=== PATIENT | male | born 1985 | race Caucasian/White ===

== ENCOUNTER 2024-08-31 10:13 | Emergency (ER) | payer OTHER, SELFPAY ==
[2024-08-31 10:22] VITALS: BP 138/90; PULSE 95; TEMP 36.3; O2SAT 97; BMI 31.0
--- NOTE | 2024-08-31 10:42 | CT_ITS ---
[place] [id number] Patient Name: RUSS CLAIRE MRN: [id number] date: 1985 Sex: M Assigned Patient Location: ER Current Patient Location: ER Accession/Order Number: [id number] Exam Date: 08/31/2024 11:35 Report Date: 08/31/2024 12:02 At the request of: HEATHER VENTURA Procedure: CT abdomen pelvis w con EXAMINATION: CT abdomen pelvis w con HISTORY: abd pain, bloating , bloody diarrhea, weakness COMPARISON: No relevant comparison available. TECHNIQUE: Axial, Coronal, and Sagittal images were obtained without and/or with IV contrast as indicated by examination type. Dose reduction techniques were achieved by using automated exposure control and/or adjustment of mA and/or kV according to patient size and/or use of iterative reconstruction technique. FINDINGS: LUNG BASES: No visible pulmonary or pleural disease. LIVER: No enlargement, atrophy, suspicious density, or significant focal lesion. BILIARY: No dilatation or calcification. PANCREAS: Fatty replaced. SPLEEN: No enlargement or focal lesion. ADRENALS: No mass or enlargement. KIDNEYS: No mass, obstruction, or calcification. BOWEL/MESENTERY: Moderate size hiatal hernia. No visible mass, obstruction, or bowel wall thickening. Normal appendix. AORTA/VASCULAR: No aneurysm or dissection. RETROPERITONEUM: No mass or adenopathy. LYMPH NODES: No adenopathy. URINARY BLADDER: No visible focal wall thickening, lesion, or calculus. PELVIC ORGANS: No visible mass. Pelvic organs appropriate for patient age. ABDOMINAL WALL: No mass or hernia. BONES: No bony lesion or fracture. OTHER: Negative. CT/CT abdomen pelvis w con IMPRESSION: 1. No abnormal or suspicious findings to account for patient's symptoms. 2. 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 Electronically authenticated by: PALLAVI MITCHELL Date: 08/31/2024 12:02
--- NOTE | 2024-08-31 10:43 | ED_ITS ---
HPI HPI - General Adult General Chief complaint: Abdominal Pain Stated complaint: abdominal pain Time Seen by Provider: 08/31/24 10:41 Source: patient and family Mode of arrival: walk-in Limitations: no limitations History of Present Illness HPI narrative: Presented to the emergency department for evaluation of dental pain. Patient states for the last couple days it is a crampy abdominal pain, left lower quadrant. States that he feels like he is getting bloated as well. Has a history of ulcerative colitis, was last scoped a couple months ago. Patient states that they did biopsies, found nothing specific. Patient states he feels he is getting bloated, is having crampy abdominal pain. States every once in a while noted some blood streaking around the stool. No other complaints at this time Related Data Home Medications ?Medication ?Instructions ?Recorded ?Confirmed dicyclomine 10 mg capsule 10 mg PO BID 08/31/24 08/31/24 duloxetine 60 mg capsule,delayed 60 mg PO DAILY 08/31/24 08/31/24 release gabapentin 800 mg tablet 800 mg PO TID 08/31/24 08/31/24 metformin 500 mg tablet 500 mg PO BID 08/31/24 08/31/24 metoprolol succinate 25 mg 25 mg PO DAILY 08/31/24 08/31/24 tablet,extended release 24 hr quetiapine 400 mg tablet 400 mg PO DAILY 08/31/24 08/31/24 Previous Rx's ?Medication ?Instructions ?Recorded hydrocodone 5 mg-acetaminophen 325 1 tab PO Q6H PRN pain #14 tabs 08/31/24 mg tablet methylprednisolone 4 mg tablets in 4 mg PO DAILY #21 ea 08/31/24 a dose pack (Medrol (Marco)) ondansetron 4 mg disintegrating 4 mg PO Q8H PRN nausea and 08/31/24 tablet vomiting 5 days #20 tabs Allergies Allergy/AdvReac Type Severity Reaction Status Date / Time Cephalosporins Allergy Severe Anaphylaxis Verified 08/31/24 10:22 Penicillins Allergy Severe Anaphylaxis Verified 08/31/24 10:22 adalimumab (From Humira) AdvReac Severe Rash Verified 08/31/24 10:22 NSAIDS (Non-Steroidal AdvReac Severe Gastrointestinal Verified 08/31/24 10:22 Anti-Inflamma Upset Opioid HPI Opioid Management Most Recent Opioid Data: Last Pain Scale 5 08/31/24 12:15 08/31/24 Last MAR Pain Assessment 08/31/24 12:15 Review of Systems ROS Narrative Negative unless otherwise stated in the HPI PFSH PFS Social History Little interest or pleasure in doing things: not at all Feeling down, depressed, or hopeless: not at all Exam Narrative Exam Narrative: General: NAD, AAOx3, no distress HEENT: NCAT, mmm Respiratory: respiratory effort normal, speaks in full sentences, no tripod position, no accessory muscle use. Lungs clear to auscultation without rhonchi, wheezes, rales Cardiac: Regular rate and rhythm, no edema, regular s1/s2, no m/g/r Abdomen: Soft, generalized abdominal tenderness, worse in the left lower quadrant, No evidence of fluid wave. No pulsatile masses on exam, rebound tenderness, Huang sign or pain over Mcburney's point. Constitutional Vital Signs, click to edit/add: Last Vital Signs Temp 97.4 F L 08/31/24 10:22 Pulse 94 H 08/31/24 12:15 Resp 18 08/31/24 12:15 BP 141/91 08/31/24 12:15 Pulse Ox 96 08/31/24 12:15 O2 Del Method Room Air 08/31/24 12:15 Course Vital Signs Vital signs: Vital Signs Temperature 97.4 F L 08/31/24 10:22 Pulse Rate 95 H 08/31/24 10:22 Respiratory Rate 18 08/31/24 10:22 Blood Pressure 138/90 08/31/24 10:22 Pulse Oximetry 97 08/31/24 10:22 Oxygen Delivery Method Room Air 08/31/24 10:22 Temperature 97.4 F L 08/31/24 10:22 Pulse Rate 94 H 08/31/24 12:15 Respiratory Rate 18 08/31/24 12:15 Blood Pressure 141/91 08/31/24 12:15 Pulse Oximetry 96 08/31/24 12:15 Oxygen Delivery Method Room Air 08/31/24 12:15 Medical Decision Making MDM Narrative Medical decision making narrative: [facility] Patient with history as above presented with abdominal pain, bloating. History obtained from patient. Patient was nontoxic, stable. Ambulatory. Exam as above. Labs reviewed. Independently reviewed imaging. Reviewed external records. Differential diagnosis considered. Overall presentation is consistent with acute on chronic UC Pt who presents for abdominal pain. Patient on exam was well appearing, no distress with benign, non peritoneal abdomen. At this point in time, history a nd benign exam do not suggest acute intra-abdominal process such as appendicitis, obstruction, cholecystitis or other acute intra-abdominal process. Laboratory studies were done and not suggestive of acute disease. Patient given IV fluids and symptomatic control with improvement. Pt is tolerating PO intake at this time. The he likely has chronic ulcerative colitis. Shared decision making was utilized with patient regarding plan of care. I have recommended Tylenol for pain control as well as fluids with close PCP follow up. Patient should return to the ER in 8-12 hours if having persistent or worsening pain. Advanced guidance has been given. Vss, pex is benign at this time. Pt to fu with pcp 1-2 days for reeval, rter should sx worsen, persist or become worrysome in any way. Pt expressed understanding and agreement with plan of care at this time. Will fu as planned. Pt stable for discharge. Lab Data Labs: Lab Results 08/31/24 Range/Units 10:35 WBC 6.9 (4.0-11.0) 10^3/uL RBC 4.14 L (4.70-6.10) 10^6/uL Hgb 13.3 L (14.0-18.0) g/dL Hct 39.2 L (42.0-54.0) % MCV 94.7 H (80.0-94.0) fL MCH 32.1 (25.9-34.0) pg MCHC 33.9 (29.9-35.2) g/dL RDW 12.1 (11.0-15.0) % Plt Count 231 (150-450) 10^3/uL MPV 10.0 (9.5-13.5) fL Neut % (Auto) 59.5 (43.0-75.0) % Lymph % (Auto) 24.2 (20.5-60.0) % [place] % (Auto) 10.2 (1.7-12.0) % Eos % (Auto) 4.7 (0.9-7.0) % Baso % (Auto) 1.0 (0.2-2.0) % Neut # (Auto) 4.1 (1.4-6.5) 10^3/uL Lymph # (Auto) 1.7 (1.2-3.8) 10^3/uL [place] # (Auto) 0.7 (0.3-0.8) 10^3/uL Eos # (Auto) 0.3 (0.0-0.7) 10^3/uL Baso # (Auto) 0.1 (0.0-0.1) 10^3/uL Abs Immat Gran (auto) 0.03 (0.00-0.03) 10^3/uL Imm/Tot Granulo (auto) 0.4 (0.0-0.5) % Sodium 140 (136-145) mmol/L Potassium 4.3 (3.5-5.1) mmol/L Chloride 105 (98-107) mmol/L Carbon Dioxide 27.4 (21.0-32.0) mmol/L Anion Gap 11.9 BUN 12.0 (7.0-18.0) mg/dL Creatinine 1.01 (0.70-1.30) mg/dL Est GFR ( Amer) >60 (>=60 mL/min/1.73m^2) Est GFR (Non-Af Amer) >60 (>=60 mL/min/1.73m^2) BUN/Creatinine Ratio 11.9 Glucose 143 H (74-106) mg/dL Calcium 9.0 (8.5-10.1) mg/dL Total Bilirubin 0.5 (0.2-1.0) mg/dL AST 17 (15-37) U/L ALT 36 (16-63) U/L Alkaline Phosphatase 59 (46-116) U/L Total Protein 6.5 (6.4-8.2) g/dL Albumin 3.3 L (3.4-5.0) g/dL Globulin 3.2 g/dL Albumin/Globulin Ratio 1.0 Lipase <10.0 L (16.0-77.0) U/L Discharge Plan Discharge Chief Complaint: Abdominal Pain Clinical Impression: Abdominal pain Patient Disposition: Home, Self-Care Time of Disposition Decision: 12:25 Condition: Good Prescriptions / Home Meds: New ondansetron 4 mg tablet,disintegrating 4 mg PO Q8H PRN (Reason: nausea and vomiting) 5 Days Qty: 20 0RF hydrocodone-acetaminophen 5-325 mg tablet 1 tab PO Q6H PRN (Reason: pain) Qty: 14 0RF methylprednisolone [Medrol (Marco)] 4 mg tablets,dose pack 4 mg PO DAILY Qty: 21 0RF Rx Instructions: Take pack per dosepack instructions No Action metformin 500 mg tablet 500 mg PO BID metoprolol succinate 25 mg tablet extended release 24 hr 25 mg PO DAILY quetiapine 400 mg tablet 400 mg PO DAILY gabapentin 800 mg tablet 800 mg PO TID dicyclomine 10 mg capsule 10 mg PO BID duloxetine 60 mg capsule,delayed release(DR/EC) 60 mg PO DAILY Print Language: [place] Instructions: Abdominal Pain (ED) Additional Instructions: Follow-up with your PCP in the next 1 to 2 days. Return to the emergency department should symptoms worsen or become worrisome in any way. Referrals: Physician,Non-Staff, MD [Primary Care Provider] - 1 week
[2024-08-31] MEDS: 0.9 % SODIUM CHLORIDE 1,000 ML 999 ML IV (10:56)
[2024-08-31] MEDS: MORPHINE SULFATE 2 MG/ML SYRINGE 4 MG IV (10:58)
[2024-08-31] MEDS: ONDANSETRON PF 4 MG/2 ML VIAL IV (10:58)
[2024-08-31 11:03] LABS: Basophils Absolute Auto 0.1 10^3/uL (0.0-0.1); Eosinophils Absolute Auto 0.3 10^3/uL (0.0-0.7); Eosinophils Percent Auto 4.7 % (0.9-7.0); Hematocrit 39.2 % (42.0-54.0); Hemoglobin 13.3 g/dL (14.0-18.0); Immature Granulocytes Abs Auto 0.03 10^3/uL (0.00-0.03); Immature Granulocytes Pct Auto 0.4 % (0.0-0.5); Lymphocytes Absolute Auto 1.7 10^3/uL (1.2-3.8); Lymphocytes Percent Auto 24.2 % (20.5-60.0); Mean Corpuscular HGB Conc 33.9 g/dL (29.9-35.2); Mean Corpuscular Hemoglobin 32.1 pg (25.9-34.0); Mean Corpuscular Volume 94.7 fL (80.0-94.0); Monocytes Absolute Auto 0.7 10^3/uL (0.3-0.8); Monocytes Percent Auto 10.2 % (1.7-12.0); Neutrophils Absolute Auto 4.1 10^3/uL (1.4-6.5); Neutrophils Percent Auto 59.5 % (43.0-75.0); Platelet Count 231 10^3/uL (150-450); Red Blood Count 4.14 10^6/uL (4.70-6.10); Red Cell Distribution Width 12.1 % (11.0-15.0); White Blood Count 6.9 10^3/uL (4.0-11.0)
[2024-08-31 11:29] LABS: Alanine Aminotransferase 36 U/L (16-63); Albumin Level 3.3 g/dL (3.4-5.0); Alkaline Phosphatase 59 U/L (46-116); Anion Gap 11.9; Aspartate Amino Transferase 17 U/L (15-37); BUN Creatinine Ratio 11.9; Bilirubin Total 0.5 mg/dL (0.2-1.0); Carbon Dioxide 27.4 mmol/L (21.0-32.0); Chloride 105 mmol/L (98-107); Estimated GFR (African America >60 (>=60 mL/min/1.73m^2); Estimated GFR (Non-African Ame >60 (>=60 mL/min/1.73m^2); Globulin 3.2 g/dL; Glucose 143 mg/dL (74-106); Lipase <10.0 U/L (16.0-77.0); Potassium 4.3 mmol/L (3.5-5.1); Sodium 140 mmol/L (136-145); Total Protein 6.5 g/dL (6.4-8.2)
[2024-08-31 11:37] VITALS: BP 147/119; PULSE 90; O2SAT 96
[2024-08-31 12:15] VITALS: BP 141/91; PULSE 94; O2SAT 96
[2024-08-31] MEDS: MORPHINE SULFATE 4 MG/ML VIAL IV (12:15)
[2024-08-31 12:42] VITALS: BP 154/101; PULSE 92; O2SAT 96
== END 2024-08-31 12:53 | disposition home or self-care (01) ==
PROVIDERS: Emergency Provider Emergency Medicine
DX: R10.9 Unspecified abdominal pain (principal)
CPT/HCPCS: 36415; 74177; 80053; 83690; 85025; 96374; 96375; 96376; 99285; J2270; J2405; Q9967